=== PATIENT | male | born 1960 | race African-American/Black ===

== ENCOUNTER 2021-06-26 10:37 | Emergency (ER) | payer OTHER ==
[~2021-06-26] VITALS: Ht 180.3 cm; Wt 94.0 kg
[2021-06-26] MEDS ORDERED: IV NORMAL SALINE 1,000ML 1,000 ML IV ONE (10:45)
--- NOTE | 2021-06-26 10:50 | EKG ---
[address] [address] Test Date: 2021-06-26 Test Time: 10:41:26 Pat Name: MARY ROSENTHAL Department: Room: Gender: M Bead Filler: LORA : 1960 Requested By: HEMALATHA CAMPA Order Number: [id number] Reading MD: Mckinley Qiu Measurements Intervals Dorena Rate: 53 P: 36 HI: 144 QRS: 12 QRSD: 86 T: 38 QT: 408 QTc: 385 Interpretive Statements SINUS RHYTHM NON SPECIFIC ST-T WAVE CHANGES Electronically Signed On 06-27-2021 18:12:49 CDT by Mckinley Qiu
--- NOTE | 2021-06-26 11:04 | PHYS DOC ---
General Adult HPI: HPI: Patient is a 61-year-old male that presents with complaints of lightheadedness. Patient is from the [facility]. Staff at the center states that they found him laying down on the ground. Patient states that he started feeling lightheaded so he laid down on the floor. Denies loss of consciousness. Denies hitting his head or any injuries. Patient states that all of his symptoms have resolved at this time. No nausea/vomiting/diarrhea. No chest pain or shortness of breath. Patient denies eating any drugs this morning. Patient states he has not had much water in the last couple of days. Reports history of hypertension, diabetes. (HEMALATHA CAMPA APRN) Review of Systems: Review of Systems: ROS At least 10 ROS systems have been reviewed and are negative except as documented in the HPI. General: Negative except as outlined in HPI above. Skin: Negative except as outlined in HPI above. HEENT: Negative except as outlined in HPI above. Neck: Negative except as outlined in HPI above. Respiratory: Negative except as outlined in HPI above.. Cardiovascular: Negative except as outlined in HPI above. Abdomen: Negative except as outlined in HPI above. : Negative except as outlined in HPI above. Back/MSK: Negative except as outlined in HPI above. Neuro: Negative except as outlined in HPI above. Psych: Negative except as outlined in HPI above. (HEMALATHA CAMPA APRN) Current Medications: Current Meds: Current Medications Medications (Trade) Dose Ordered Sig/Grace Start Time Stop Time Status Last Admin Dose Admin Sodium Chloride 1,000 ml @ 1,000 mls/hr 1X ONCE 06/26/21 10:45 06/26/21 11:44 UNV (HEMALATHA CAMPA STUDY ABROAD COORDINATOR) Physical Exam: PE: Constitutional: Well developed, well nourished, no acute distress, non-toxic appearance. [] HENT: Normocephalic, atraumatic, bilateral external ears normal, oropharynx moist, no oral exudates, nose normal. [] Eyes: PERRLA, EOMI, conjunctiva normal, no discharge. [] Neck: Normal range of motion, no tenderness, supple, no stridor. [] Cardiovascular:Heart rate regular rhythm, no murmur [] Lungs & Thorax: Bilateral breath sounds clear to auscultation [] Abdomen: Bowel sounds normal, soft, no tenderness, no masses, no pulsatile masses. [] Skin: Warm, dry, no erythema, no rash. [] Back: No tenderness, no CVA tenderness. [] Extremities: No tenderness, no cyanosis, no clubbing, ROM intact, no edema. [] Neurologic: Alert and oriented X 3, normal motor function, normal sensory function, no focal deficits noted. [] Psychologic: Affect normal, judgement normal, mood normal. [] (HEMALATHA CAMPA APRN) EKG: EKG: [] Sinus rhythm, [address] elevation or depression. (HEMALATHA CAMPA APRN) Radiology/Procedures: Radiology/Procedures: [] (HEMALATHA CAMPA APRN) Heart Score: C/O Chest Pain: No Risk Factors: Risk Factors: DM, Current or recent (<one month) smoker, HTN, HLP, family history of CAD, obesity. Risk Scores: Score 0 - 3: 2.5% MACE over next 6 weeks - Discharge Home Score 4 - 6: 20.3% MACE over next 6 weeks - Admit for Clinical Observation Score 7 - 10: 72.7% MACE over next 6 weeks - Early Invasive Strategies (HEMALATHA CAMPA APRN) Course & Med Decision Making: Course & Med Decision Making Pertinent Labs and Imaging studies reviewed. (See chart for details) [] Nontoxic-appearing, 61-year-old male presents with lightheadedness. Patient currently stays at the [facility] and [facility] Staff at the [facility] state that they came in the room and he was laying on the floor. Patient reports that he started feeling dizzy so he laid down on the floor himself. Denies falling. Denies loss of consciousness. No injuries. No chest pain or shortness of breath. Patient states that he has not drink much water in the last couple of days. No recent illness. Patient denies any symptoms at this time. Denies ingestion of drugs or alcohol. Patient's heart rate was slightly bradycardic. Heart rate was 58 bpm. Patient given NS bolus. EKG was performed along with CBC, CMP, urinalysis, UDS. All labs unremarkable. Urinalysis is negative for infection. UDS negative. EKG shows sinus bradycardia, heart rate 53 bpm. Patient given NS bolus. Patient stating he feels much better. Another member from [facility] was brought in for similar symptoms after patient was brought in. Denying drug use but suspicious for K2 use. Discussed drinking plenty of fluids with patient. Discussed return precautions. Patient verbalized understanding of discharge instructions. (HEMALATHA CAMPA APRN) [place] Disclaimer: Felipe Disclaimer: This electronic medical record was generated, in whole or in part, using a voice recognition dictation system. (HEMALATHA CAMPA APRN) Attending Co-Sign The patient was seen and interviewed as well as examined at the bedside. The chart was reviewed. The case was discussed. Agree with the plan of care. (STEPHANIE SULLIVAN DO) Departure Departure: Impression: Primary Impression: Dizziness Additional Impression: Drug abuse Disposition: HOME / SELF CARE / HOMELESS Condition: STABLE Referrals: PCP,ROYAL (PCP) Patient Instructions: Dizziness, [id number] Additional Instructions: You are seen the emergency room for dizziness. All of your labs are unremarkable. Please make sure you are drinking plenty of fluids. Return to emergency room with worsening symptoms or concerns such as chest pain, shortness of breath. EMERGENCY DEPARTMENT GENERAL DISCHARGE INSTRUCTIONS Thank you for coming to [facility] (ED) today and trusting us with you care. We trust that you had a positivie experience in our Emergency Department. If you wish to speak to the department management, you may call the director at [phone]. YOUR FOLLOW UP INSTRUCTIONS ARE FOLLOWS: 1. Do you have a private Doctor? If you do not have a private doctor, please ask for a resource list of physicians or clinics that may be able to assist you with follow up care. 2. The Emergency Physician has interpreted your x-rays. The X-Ray specialist will also review them. If there is a change in the findings, you will be notified in 48 hours when at all possible. 3. A lab test or culture has been done, your results will be reviewed and you will be notified if you need a change in treatment. ADDITIONAL INSTRUCTIONS AND INFORMATION: 1. Your care today has been supervised by a physician who is specially trained in emergency care. Many problems require more than one evaluation for a complete diagnosis and treatment. We recommend that you schedule your follow up appointment as recommended to ensure complete treatment of you illness or injury. If you are unable to obtain follow up care and continue to have a problem, or if your condition worsens, we recommend that you return to the ED. 2. We are not able to safely determine your condition over the phone nor are we able to give sound medical advice over the phone. For these safety reasons, if you call for medical advice we will ask you to come to the ED for further evaluation. 3. If you have any questions regarding these discharge instructions please call the ED at [phone]. SAFETY INFORMATION: In the interest of safety, wellness, and injury prevention; we encourage you to wear your sealbelt, if you smoke; quite smoking, and we encourage family to use a protective helmet for bicycling and other sporting events that present an increased risk for head injury. IF YOUR SYMPTOMS WORSEN OR NEW SYMPTOMS DEVELOP, OR YOU HAVE CONCERNS ABOUT YOUR CONDITION; OR IF YOUR CONDITION WORSENS WHILE YOU ARE WAITING FOR YOUR FOLLOW UP APPO INTMENT; EITHER CONTACT YOUR PRIMARY CARE DOCTOR, THE PHYSICIAN WHOSE NAME AND NUMBER YOU WERE GIVEN, OR RETURN TO THE ED IMMEDIATELY. HEMALATHA CAMPA APRN Jun 26, 2021 11:04 STEPHANIE SULLIVAN DO June 30, 2021 06:10
[2021-06-26 11:32] LABS: BASO % 1 % (0-3); EOS % 0 % (0-3); HEMATOCRIT 42.8 % (39.0-53.0); LYMPH # 1.4 x10^3/uL (1.0-4.8); LYMPH % 27 % (24-48); MEAN CORPUSCULAR HEMOGLOBIN 31 pg (25-35); MEAN CORPUSCULAR HGB CONC 33 g/dL (31-37); MEAN CORPUSCULAR VOLUME 94 fL (79-100); MONO # 0.5 x10^3/uL (0.0-1.1); MONO % 10 % (0-9); NEUT # 3.3 x10^3uL (1.8-7.7); NEUT % 63 % (31-73); PLATELET COUNT 189 x10^3/uL (140-400); RED BLOOD COUNT 4.57 x10^6/uL (4.30-5.70); RED CELL DISTRIBUTION WIDTH 13.6 % (11.5-14.5); WHITE BLOOD COUNT 5.3 x10^3/uL (4.0-11.0)
[2021-06-26 11:39] LABS: CALCIUM 8.8 mg/dL (8.5-10.1); CREATININE 1.6 mg/dL (0.7-1.3); GFR 53.8; POTASSIUM 4.1 mmol/L (3.5-5.1)
[2021-06-26 12:09] LABS: BARBITURATES NEG (NEG); BENZODIAZEPINES NEG (NEG); CANNABINOIDS NEG (NEG); COCAINE NEG (NEG); METHADONE NEG (NEG); OPIATES NEG (NEG); PHENCYCLIDINE NEG (NEG)
[2021-06-26 12:18] LABS: BACTERIA,URINE 0 /HPF (0-FEW); CLARITY,URINE CLEAR; COLOR,URINE YELLOW; GLUCOSE,URINE NEG (NEG); NITRITE,URINE NEG (NEG); UROBILINOGEN,URINE 0.2 mg/dL (0.2 mg/dL)
[2021-06-26 12:19] LABS: GRANULAR CASTS,URINE OCC /HPF; HYALINE CASTS, URINE FEW /HPF; SQUAMOUS EPITHELIAL CELL,UR FEW /LPF
[2021-06-26 12:23] LABS: AMPHETAMINE/METHAMPHETAMINE NEG (NEG)
[2021-06-26 13:59] VITALS: BP 127/77
== END 2021-06-26 14:06 | disposition home or self-care (01) ==
LOC: ER 10:37
DX: R42 Dizziness and giddiness (principal); F19.10 Other psychoactive substance abuse, uncomplicated; I10 Essential (primary) hypertension; E11.9 Type 2 diabetes mellitus without complications
CPT/HCPCS: 36415; 80048; 80307; 81001; 84484; 85025; 93005; 96360; 99284; J7030